=== PATIENT | female | born 1990 | race Caucasian/White ===

== ENCOUNTER 2017-09-25 10:21 | Inpatient (IN) | payer SELFPAY ==
[2017-09-25] VITALS (9 sets, daily range): BP systolic 107–132; BP diastolic 70–89
[~2017-09-25] VITALS: Ht 170.2 cm; Wt 63.2 kg
[2017-09-25] MEDS ORDERED: 1/2 NS IV SOLUTION 1,000 ML IV PRN (17:36)
[2017-09-25] MEDS ORDERED: THIAMINE INJECTION 100 MG, FOLIC ACID INJECTION 1 MG, MAGNESIUM SULFATE 2 GM, VITAMIN M... IV SCH ×5 (17:36)
[2017-09-25] MEDS ORDERED: LORazepam INJ 2 MG/ML (ATIVAN) VIAL IM/IV PRN (17:45)
[2017-09-25] MEDS ORDERED: fentaNYL INJECTION 100 MCG/2 ML AMP IVP PRN (17:45)
[2017-09-25] MEDS ORDERED: ONDANSETRON 4 MG (ZOFRAN) ORAL DISSOLVE TAB SL PRN (17:45)
[2017-09-25] MEDS ORDERED: SENNA W/DOCUSATE (SENOKOT S) TABLET PO PRN (17:45)
[2017-09-25] MEDS ORDERED: ANTACID SUSP 30 ML UDC (MYLANTA) PO PRN (17:45)
--- OUTSIDE RECORDS SUMMARY | 2017-09-25 17:53 | XMS REPORT | Continuity of Care Document ---
Author Author [facility] Address Unknown Phone Unavailable Allergies Medications Problems Procedures Results Encounters ACCT No. Visit Date/Time Discharge Status Pt. Type Provider Facility Loc./Unit Complaint [id number] 10/04/2014 15:36:44 10/04/2014 23: 59:59 [facility] Outpatient Alesia Berman [id number] 09/07/2014 09:27:02 09/07/2014 23: 59:59 [facility] Outpatient Alesia Berman
[2017-09-25 18:36] LABS: INR 0.9 (0.8-1.4); PROTHROMBIN TIME PATIENT 12.5 SEC (12.2-14.7)
[2017-09-25 18:46] LABS: ALANINE AMINOTRANSFERASE 18 U/L (0-55); ALBUMIN 4.3 GM/DL (3.2-4.5); ALKALINE PHOSPHATASE 49 U/L (40-136); BILIRUBIN,TOTAL 0.4 MG/DL (0.1-1.0); BUN/CREATININE RATIO 15; CALCIUM 8.9 MG/DL (8.5-10.1); CARBON DIOXIDE 25 MMOL/L (21-32); CHLORIDE 95 MMOL/L (98-107); CREATININE SERUM 0.81 MG/DL (0.60-1.30); GFR ESTIMATED > 60; GLUCOSE 91 MG/DL (70-105); POTASSIUM 3.7 MMOL/L (3.6-5.0); SODIUM 137 MMOL/L (135-145); TOTAL PROTEIN 7.4 GM/DL (6.4-8.2)
--- NOTE | 2017-09-25 18:47 | History & Physical-Hospitalist ---
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 I placed admission orders and with detox protocol and upon arrival she had a seizure which she's never had a seizure before. Her mother is at the bedside. She reports that she was in the ER in [place] when she went through alcohol withdrawal before but that was just given a taper dose of anxiolytics and discharged home on pills but never required admission or ICU admission such as this. She drinks approximately 12 beers a day but I suspect that is more considering how severe her withdrawal is currently. She is very concerned about losing her job [employer] and we will provide any support we can and eventually moved to an inpatient alcohol rehabilitation facility to complete care. 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[employer]) Alcohol Use: Regular Use Alcohol Beverage of Choice: Beer Recreational Drug Use: No Smoking Status: Former Smoker Type Used: Cigarettes Physical Abuse Screen: No Sexual Abuse: No Recent Foreign Travel: No Contact w/other who traveled: No Recent Hopitalizations: No Immunizations Up To Date Date of Influenza Vaccine: Jul 15, 2017 Seasonal Allergies Seasonal Allergies: No Surgeries Yes (L5-S1 fusion, breast reduction) Respiratory No Cardiovascular No Neurological No Genitourinary No Gastrointestinal No Musculoskeletal Yes (L5-S1 Fusion) Endocrine History of Endocrine Disorders: No HEENT History of HEENT Disorders: No Cancer No Psychosocial Behavioral Health Disorders: Anxiety, Depression Integumentary History of Skin or Integumenta: No Blood Transfusions History of Blood Disorders: No Review of Systems Constitutional: see HPI, chills, diaphoresis, dizziness, malaise, weight loss EENTM: no symptoms reported Respiratory: no symptoms reported Cardiovascular: palpitations Gastrointestinal: heartburn, loss of appetite, nausea, vomiting Genitourinary: decreased output Musculoskeletal: no symptoms reported Skin: no symptoms reported Psychiatric/Neurological: Anxiety, Depressed All Other Systems Reviewed Negative Unless Noted: Yes Physical Exam Physical Exam Vital Signs Vital Sign - Last 12Hours 09/25/17 18:20 O2 Delivery Room Air Capillary Refill : General Appearance: WD/WN, Moderate Distress (due to withdrawal) Eyes: Bilateral Eye Normal Inspection, Bilateral Eye PERRL HEENT: PERRL/EOMI, Normal ENT Inspection, Pharynx Normal Neck: Full Range of Motion, Normal Inspection, Non Tender, Supple, Carotid Bruit Respiratory: Chest Non Tender, Lungs Clear, Normal Breath Sounds, No Accessory Muscle Use, No Respiratory Distress Cardiovascular: No Edema, No Gallop, No JVD, No Murmur, Normal Peripheral Pulses, Tachycardia Gastrointestinal: Normal Bowel Sounds, No Organomegaly, No Pulsatile Mass, Non Tender, Soft Back: Normal Inspection, No CVA Tenderness, No Vertebral Tenderness Extremity: Normal Capillary Refill, Normal Inspection, Normal Range of Motion, Non Tender, No Calf Tenderness, No Pedal Edema Neurologic/Psychiatric: Alert, Oriented x3, No Motor/Sensory Deficits, Depressed Affect Skin: Normal Color, Warm/Dry Lymphatic: No Adenopathy Assessment/Plan Admission Diagnosis Assessment: Acute and severe ETOH withdrawal with seizure on admit History of ETOH-ism Lumbar spine surgery hx Former smoker Assessment and Plan Plan: Detox protocol Ativan for seizures and withdrawal Check labs and HCG Monitor closely SW consult Clinical Quality Measures DVT/VTE Risk/Contraindication: Risk Factor Score Per Nursin RFS Level Per Nursing on Admit: 3=High JO-ANN HENNING DO Sep 25, 2017 18:47
[2017-09-25 19:05] LABS: BILIRUBIN,URINE NEGATIVE (NEGATIVE); CLARITY,URINE CLEAR; COLOR,URINE YELLOW; GLUCOSE, URINE (UA) NEGATIVE (NEGATIVE); KETONES,URINE NEGATIVE (NEGATIVE); LEUKOCYTE ESTERASE ,URINE NEGATIVE (NEGATIVE); NITRITE,URINE NEGATIVE (NEGATIVE); PH,URINE 7 (5-9); PROTEIN,URINE NEGATIVE (NEGATIVE); UROBILINOGEN,URINE NORMAL (NORMAL)
[2017-09-25 19:19] LABS: AMPHETAMINE SCREEN, URINE NEGATIVE (NEGATIVE); BARBITURATE SCREEN URINE NEGATIVE (NEGATIVE); BENZODIAZEPINES SCREEN URINE NEGATIVE (NEGATIVE); CANNABINOID SCREEN, URINE NEGATIVE (NEGATIVE); COCAINE SCREEN URINE NEGATIVE (NEGATIVE); METHADONE STAT NEGATIVE (NEGATIVE); METHAMPHETAMINE SCREEN URINE S NEGATIVE (NEGATIVE); OPIATE SCREEN URINE NEGATIVE (NEGATIVE); OXYCODONE STAT NEGATIVE (NEGATIVE); PROPOXYPHENE STAT NEGATIVE (NEGATIVE); TRICYCLIC ANTIDEPRESSANTS SCRE NEGATIVE (NEGATIVE)
[2017-09-25 19:21] LABS: BACTERIA,URINE TRACE /HPF; WBC,URINE RARE /HPF
[2017-09-25] MEDS: THIAMINE INJECTION 100 MG, FOLIC ACID INJECTION 1 MG, MAGNESIUM SULFATE 2 GM, VITAMIN M... IV SCH ×5 (19:40)
[2017-09-25] MEDS: NS IV 1000 ML 1,000 ML IV SCH (19:43)
[2017-09-25] MEDS: LORazepam 1 MG (ATIVAN) TAB PO PRN (19:53)
[2017-09-25] MEDS ORDERED: MAGNESIUM OXIDE (MAG-OX)400 MG TAB PO SCH (21:00)
[2017-09-25] MEDS: ONDANSETRON 4 MG/2 ML (SDV) Z0FRAN IV PRN (21:12)
[2017-09-26] VITALS (24 sets, daily range): BP systolic 93–139; BP diastolic 62–89
[2017-09-26] MEDS: D5 1/2 NS 1000 ML IV SOLUTION 1,000 ML IV PRN (02:33)
[2017-09-26] MEDS: NS IV 1000 ML 1,000 ML IV SCH ×2 (04:45→15:04)
[2017-09-26 05:27] LABS: BASOPHILS % (AUTO) 1 % (0-10); EOSINOPHILS # (AUTO) 0.1 10^3/uL (0.0-0.3); EOSINOPHILS % (AUTO) 4 % (0-10); HEMATOCRIT 40 % (35-52); HEMOGLOBIN 13.9 G/DL (11.5-16.0); LYMPHOCYTES # (AUTO) 1.7 X 10^3 (1.0-4.0); LYMPHOCYTES % (AUTO) 49 % (12-44); MEAN CORPUSCULAR HEMOGLOBIN 31 PG (25-34); MEAN CORPUSCULAR HGB CONC 35 G/DL (32-36); MEAN CORPUSCULAR VOLUME 89 FL (80-99); MEAN PLATELET VOLUME 8.8 FL (7.4-10.4); MONOCYTES # (AUTO) 0.3 X 10^3 (0.0-1.0); MONOCYTES % (AUTO) 9 % (0-12); NEUTROPHILS # (AUTO) 1.3 X 10^3 (1.8-7.8); NEUTROPHILS % (AUTO) 38 % (42-75); PLATELET COUNT 200 10^3/uL (130-400); RED BLOOD COUNT 4.49 10^6/uL (4.35-5.85); RED CELL DISTRIBUTION WIDTH 13.1 % (10.0-14.5); WHITE BLOOD COUNT 3.5 10^3/uL (4.3-11.0)
[2017-09-26 05:52] LABS: BUN/CREATININE RATIO 13; CALCIUM 8.5 MG/DL (8.5-10.1); CARBON DIOXIDE 27 MMOL/L (21-32); CHLORIDE 102 MMOL/L (98-107); GFR ESTIMATED > 60; GLUCOSE 66 MG/DL (70-105); MAGNESIUM 2.6 MG/DL (1.8-2.4); PHOSPHORUS 3.7 MG/DL (2.3-4.7); POTASSIUM 3.9 MMOL/L (3.6-5.0); SODIUM 143 MMOL/L (135-145)
[2017-09-26 05:53] LABS: BILIRUBIN,DIRECT 0.3 MG/DL (0.0-0.3); BILIRUBIN,INDIRECT 0.5 MG/DL; BILIRUBIN,TOTAL 0.8 MG/DL (0.1-1.0); TOTAL PROTEIN 5.8 GM/DL (6.4-8.2)
--- NOTE | 2017-09-26 06:05 | Pulmonary Consultation ---
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 Her alcohol level was found to be 383 upon admission. Pt had a seizure upon arrival. No prior episodes of seizures. SHe has had and treated for prior alcohol withdrawal symptoms when she lived in . I am consulted for ICU management. Allergies and Home Medications Allergies Coded Allergies: bacitracin (Verified Allergy, Unknown, 09/25/17) neomycin (Verified Allergy, Unknown, 09/25/17) polymyxin B (Verified Allergy, Unknown, 09/25/17) Home Medications Ascorbate Calcium 500 Mg Tablet, 500 MG PO DAILY, (Reported) Multivits,Ca,Minerals/Iron/FA 1 Each Tablet, 1 TAB PO DAILY, (Reported) Past Vlabiqg-Lfdtdk-Ntukok Hx Patient Social History Alcohol Use: Regular Use Alcohol Beverage of Choice: Beer Recreational Drug Use: No Smoking Status: Former Smoker Type Used: Cigarettes Recent Foreign Travel: No Contact w/Someone Who Travel: No Recent Hopitalizations: No Immunizations Up To Date Date of Influenza Vaccine: Jul 15, 2017 Seasonal Allergies Seasonal Allergies: No Surgeries History of Surgeries: Yes (L5-S1 fusion, breast reduction) Respiratory History of Respiratory Disorde: No Cardiovascular History of Cardiac Disorders: No Neurological History of Neurological Disord: No Reproductive System : No Genitourinary History of Genitourinary Disor: No Gastrointestinal History of Gastrointestinal Di: No Musculoskeletal History of Musculoskeletal Dis: Yes (L5-S1 Fusion) Endocrine History of Endocrine Disorders: No HEENT History of HEENT Disorders: No Cancer History of Cancer: No Psychosocial Behavioral Health Disorders: Anxiety, Depression Integumentary History of Skin or Integumenta: No Blood Transfusions History of Blood Disorders: No Family Medical History Family Medial History: Hypercholesterolemia 19 FATHER Hypertension 19 FATHER Review of Systems Time Seen by Provider: 06:11 Exam Exam Vital Signs Date Time Temp Pulse Resp B/P (MAP) Pulse Ox O2 Delivery O2 Flow Rate FiO2 09/26/17 04:00 97 Nasal Cannula 1.00 09/26/17 03:00 78 18 103/70 (81) 99 Room Air 09/26/17 02:00 82 11 100/68 (79) 99 Room Air 09/26/17 01:00 85 14 101/66 (78) 98 Room Air 09/26/17 01:00 84 09/26/17 00:00 99 Nasal Cannula 1.00 09/26/17 00:00 96.9 81 13 105/77 (86) 99 Room Air 09/25/17 23:00 86 14 107/72 (84) 96 Room Air 09/25/17 22:00 88 14 107/72 (84) 98 Room Air 09/25/17 21:00 96 14 114/77 (89) 97 Room Air 09/25/17 20:00 97.9 105 16 114/78 (90) 94 Room Air 09/25/17 20:00 96 Nasal Cannula 1.00 09/25/17 19:00 116 09/25/17 19:00 112 13 107/70 (82) 96 Room Air 09/25/17 18:45 138 12 132/89 (103) 96 Room Air 09/25/17 18:30 112 22 119/87 (98) 96 Room Air 09/25/17 18:20 Room Air 09/25/17 18:15 121 19 121/74 (90) 97 Room Air 09/25/17 18:00 125 14 120/86 (97) 99 Room Air 09/25/17 18:00 98.9 I & O 09/26/17 07:00 Intake Total 1460 ml Output Total 1800 ml Balance -340 ml General Appearance: No Apparent Distress, WD/WN HEENT: PERRL/EOMI, Normal ENT Inspection, Pharynx Normal Neck: Full Range of Motion, Normal Inspection, Non Tender, Supple, Carotid Bruit Respiratory: Chest Non Tender, Lungs Clear, Normal Breath Sounds, No Accessory Muscle Use, No Respiratory Distress Cardiovascular: No Edema, No Gallop, No JVD, No Murmur, Normal Peripheral Pulses, Tachycardia Extremity: Normal Capillary Refill, Normal Inspection, Normal Range of Motion, Non Tender, No Calf Tenderness, No Pedal Edema Neurologic/Psychiatric: Alert, Oriented x3, No Motor/Sensory Deficits, Depressed Affect Skin: Normal Color, Warm/Dry Lymphatic: No Adenopathy Results Lab Laboratory Tests 09/25/17 18:20 09/26/17 05:15 Assessment/Plan Assessment/Plan -Alcohol withdrawal -Alcohol withdrawal protocol Seizures -Seizure precautions -treat for alcohol withdrawal -Dehydration -IVF Alcohol dependance -Education Hypermagnesemia -Hold magnesium 255 Clinical Quality Measures DVT/VTE Risk/Contraindication: Risk Factor Score Per Nursin RFS Level Per Nursing on Admit: 3=High ALEXANDREA KENDALL DO Sep 26, 2017 06:05
[2017-09-26] MEDS: MULTIVIT W/MINERALS TAB (THERAGRAN M) PO SCH (07:43)
[2017-09-26] MEDS: THIAMINE 100 MG (VITAMIN B-1) TAB PO SCH (07:43)
[2017-09-26] MEDS: FOLIC ACID 1 MG TAB PO SCH (08:20)
[2017-09-26] MEDS: LORazepam INJ 2 MG/ML (ATIVAN) VIAL IV PRN ×2 (08:21→12:56)
[2017-09-26] MEDS: THIAMINE INJECTION 100 MG, FOLIC ACID INJECTION 1 MG, MAGNESIUM SULFATE 2 GM, VITAMIN M... IV SCH ×5 (08:38)
--- NOTE | 2017-09-26 08:44 | Diagnostic Imaging Report ---
Portable erect AP chest at 4:42 AM. INDICATION: Shortness of breath. There are no prior studies available for comparison. The heart size is within normal limits. The lungs are clear. There is no evidence for failure, pneumonia, or for a pleural effusion. Mediastinum is not widened. The osseous structures are intact. IMPRESSION: There is no evidence for an acute cardiopulmonary abnormality. Dictated by: Dictated on workstation # [id number]
[2017-09-26] MEDS ORDERED: MULT-884 PO (09:44)
[2017-09-26] MEDS ORDERED: ASCO-262 PO (09:44)
--- NOTE | 2017-09-26 10:55 | Progress Note-Hospitalist ---
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 I placed admission orders and with detox protocol and upon arrival she had a seizure which she's never had a seizure before. Her mother is at the bedside. She reports that she was in the ER in [place] when she went through alcohol withdrawal before but that was just given a taper dose of anxiolytics and discharged home on pills but never required admission or ICU admission such as this. She drinks approximately 12 beers a day but I suspect that is more considering how severe her withdrawal is currently. She is very concerned about losing her job [facility] [employer] and we will provide any support we can and eventually moved to an inpatient alcohol rehabilitation facility to complete care. Progress Notes/Assess & Plan Date Seen 09/26/17 Time Seen by Provider: 11:00 Admission Dx/Process Assessment: Acute and severe ETOH withdrawal with seizure on admit History of ETOH-ism Lumbar spine surgery hx Former smoker Diagonsis/Assessment & Plan Chart Review: No fever Vitals stable WBC 3.5 Hgb 13.9 CMP normal UA negative UCG negative Blood alcohol 383 at 1820 yesterday, now 170 Pharmacy Review: Pt only received one dose IV Ativan at 0820 Pt was also given 1 mg at 1953 then another at midnight seamless tube drawer: Pt has not been eating RN has known pt since she was a child; she states the pt went to school with her kids Pt seems to have struggled with eating and not eating for a long time. Eating disorder was suggested. Ativan was given this am, IV Patient Interview: Pt was asked if she has met with social work and this was discussed. Pain was discussed Physical exam stable. Lungs sound perfect. Detox and seizure was discussed. Pt was informed that she will be staying in ICU for now since her alcohol level is still quite high. DC was discussed for Saturday or Saturday AFVSS, pleasant, improved RRR, CTAB No edema Laboratory Tests 09/25/17 18:20 09/26/17 05:15 Assessment: ETOH withdrawal with acute seizure on arrival even while BAL was 383 not improved at 170 but more withdrawal expected Poor nutrition Plan: Detox protocol Ativan for seizures and withdrawal Monitor closely SW consult In-Pt ETOH rehab Scribed by Suyapa Camp under direct supervision of Dr. Jo-Ann Henning. JO-ANN HENNING DO Sep 26, 2017 10:55
[2017-09-26] MEDS: LORazepam 1 MG (ATIVAN) TAB PO PRN ×2 (16:45)
[2017-09-26] MEDS ORDERED: SCOPOLAMINE 1.5 MG (TRANSDERM-SCOP) PATCH TD ONE (16:45)
[2017-09-27] VITALS (20 sets, daily range): BP systolic 92–130; BP diastolic 58–99
[2017-09-27] MEDS: NS IV 1000 ML 1,000 ML IV SCH (00:45)
[2017-09-27] MEDS: D5 1/2 NS 1000 ML IV SOLUTION 1,000 ML IV PRN (02:47)
[2017-09-27] MEDS: THIAMINE 100 MG (VITAMIN B-1) TAB PO SCH (06:05)
[2017-09-27] MEDS: MULTIVIT W/MINERALS TAB (THERAGRAN M) PO SCH (06:05)
--- NOTE | 2017-09-27 06:16 | Pulmonary Progress Note ---
Subjective Time Seen by Provider: 06:18 Subjective/Events-last exam No complications noted. Exam Exam Vital Signs Date Time Temp Pulse Resp B/P (MAP) Pulse Ox O2 Delivery O2 Flow Rate FiO2 09/27/17 04:00 97.7 09/27/17 04:00 98 Room Air 09/27/17 01:00 47 09/27/17 00:00 61 14 106/69 (81) 97 Room Air 09/27/17 00:00 98 Room Air 09/27/17 00:00 97.3 09/26/17 23:00 54 13 107/74 (85) 96 Room Air 09/26/17 22:00 70 13 100/62 (75) 97 Room Air 09/26/17 21:00 81 13 102/64 (77) 97 Room Air 09/26/17 20:00 88 17 113/72 (86) 96 Room Air 09/26/17 20:00 95 Room Air 09/26/17 20:00 98.3 09/26/17 19:00 91 09/26/17 19:00 87 16 115/89 (98) 97 Room Air 09/26/17 18:00 89 12 118/79 (92) 99 Room Air 09/26/17 17:00 87 8 113/79 (90) 99 Room Air 09/26/17 16:00 99 Nasal Cannula 09/26/17 16:00 98.6 96 25 119/79 (92) 99 Room Air 09/26/17 15:00 89 6 139/71 (93) 97 Room Air 09/26/17 14:00 90 13 116/89 (98) 97 Room Air 09/26/17 13:00 93 09/26/17 13:00 93 11 134/85 (101) 99 Room Air 09/26/17 12:00 99.1 91 8 123/76 (92) 98 Room Air 09/26/17 12:00 99 Nasal Cannula 09/26/17 11:00 82 12 127/75 (92) 98 Room Air 09/26/17 10:00 90 11 113/72 (86) 98 Room Air 09/26/17 09:00 84 11 98/66 (77) 98 Room Air 09/26/17 08:00 99 Nasal Cannula 09/26/17 08:00 97.8 09/26/17 08:00 88 9 97/65 (76) 100 Room Air 09/26/17 07:00 76 09/26/17 07:00 91 15 107/73 (84) 97 Room Air 09/26/17 06:57 98 Nasal Cannula 1.00 I & O 09/27/17 07:00 Intake Total 2850 ml Output Total 2630 ml Balance 220 ml General Appearance: No Apparent Distress, WD/WN HEENT: PERRL/EOMI, Normal ENT Inspection, Pharynx Normal Neck: Full Range of Motion, Normal Inspection, Non Tender, Supple, Carotid Bruit Respiratory: Chest Non Tender, Lungs Clear, Normal Breath Sounds, No Accessory Muscle Use, No Respiratory Distress Cardiovascular: No Edema, No Gallop, No JVD, No Murmur, Normal Peripheral Pulses, Tachycardia Extremity: Normal Capillary Refill, Normal Inspection, Normal Range of Motion, Non Tender, No Calf Tenderness, No Pedal Edema Neurologic/Psychiatric: Alert, Oriented x3, No Motor/Sensory Deficits, Depressed Affect Skin: Normal Color, Warm/Dry Lymphatic: No Adenopathy Results Lab Laboratory Tests 09/25/17 18:20 09/26/17 05:15 Assessment/Plan Assessment/Plan -Alcohol withdrawal -- she is having cold sweats. SHe is not to the peak of her alcohol withdrawal yet. -Alcohol withdrawal protocol -Pt states she does not want to drink alcohol anymore. Seizures -Seizure precautions -treat for alcohol withdrawal -Dehydration -IVF Alcohol dependance -Education Labs pending 233 Clinical Quality Measures DVT/VTE Risk/Contraindication: Risk Factor Score Per Nursin RFS Level Per Nursing on Admit: 3=High ALEXANDREA KENDALL DO Sep 27, 2017 06:16
[2017-09-27 06:34] LABS: BASOPHILS % (AUTO) 1 % (0-10); EOSINOPHILS # (AUTO) 0.2 10^3/uL (0.0-0.3); EOSINOPHILS % (AUTO) 5 % (0-10); HEMATOCRIT 37 % (35-52); HEMOGLOBIN 12.7 G/DL (11.5-16.0); LYMPHOCYTES # (AUTO) 1.4 X 10^3 (1.0-4.0); LYMPHOCYTES % (AUTO) 45 % (12-44); MEAN CORPUSCULAR HEMOGLOBIN 32 PG (25-34); MEAN CORPUSCULAR HGB CONC 35 G/DL (32-36); MEAN CORPUSCULAR VOLUME 91 FL (80-99); MONOCYTES # (AUTO) 0.4 X 10^3 (0.0-1.0); MONOCYTES % (AUTO) 13 % (0-12); NEUTROPHILS # (AUTO) 1.1 X 10^3 (1.8-7.8); NEUTROPHILS % (AUTO) 36 % (42-75); PLATELET COUNT 150 10^3/uL (130-400); RED BLOOD COUNT 4.02 10^6/uL (4.35-5.85); RED CELL DISTRIBUTION WIDTH 12.9 % (10.0-14.5); WHITE BLOOD COUNT 3.1 10^3/uL (4.3-11.0)
[2017-09-27 06:59] LABS: BUN/CREATININE RATIO 6; CALCIUM 8.8 MG/DL (8.5-10.1); CARBON DIOXIDE 23 MMOL/L (21-32); CHLORIDE 110 MMOL/L (98-107); CREATININE SERUM 0.77 MG/DL (0.60-1.30); GFR ESTIMATED > 60; GLUCOSE 100 MG/DL (70-105); MAGNESIUM 1.8 MG/DL (1.8-2.4); PHOSPHORUS 3.2 MG/DL (2.3-4.7); POTASSIUM 4.1 MMOL/L (3.6-5.0); SODIUM 141 MMOL/L (135-145)
[2017-09-27] MEDS: FOLIC ACID 1 MG TAB PO SCH (09:02)
[2017-09-27] MEDS: THIAMINE INJECTION 100 MG, FOLIC ACID INJECTION 1 MG, MAGNESIUM SULFATE 2 GM, VITAMIN M... IV SCH ×5 (09:23)
[2017-09-27] MEDS ORDERED: NORE1TAB61 PO (11:20)
[2017-09-27] MEDS ORDERED: TRAZ-28 PO (11:20)
[2017-09-27] MEDS ORDERED: AMPH20TA2 PO (11:20)
[2017-09-27] MEDS ORDERED: VENL75CA93 PO (11:20)
--- NOTE | 2017-09-27 11:37 | Progress Note-Hospitalist ---
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 I placed admission orders and with detox protocol and upon arrival she had a seizure which she's never had a seizure before. Her mother is at the bedside. She reports that she was in the ER in [place] when she went through alcohol withdrawal before but that was just given a taper dose of anxiolytics and discharged home on pills but never required admission or ICU admission such as this. She drinks approximately 12 beers a day but I suspect that is more considering how severe her withdrawal is currently. She is very concerned about losing her job [facility] and we will provide any support we can and eventually moved to an inpatient alcohol rehabilitation facility to complete care. 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 I informed the RN that I will be around for the mother to talk to Pt has stated that her friends have told her that this was not the first time she has gone through withdrawal. SW Review: Pt is on a few medications, but does not have insurance. This was discussed with the pt's mother and we are hoping that the family could help pay for her medications. Patient Interview: Pt was informed that she will move to 4 th floor Pt was informed I am not ready to DC her just yet and the pt was informed that we have just gotten everything out of system and she is still at risk for seizure. RN stated that the pt has not received Ativan today Physical exam stable. Lungs sound perfect Pt denies experiencing pain Pt confirms having BMs Pt confirms mother is on her way Pt confirms going through withdrawal before. Pt states she is feeling well enough now. Pt was again informed that she is still at risk. Pt was informed that another seizure at home could cause her to aspirate may inevitably cause . Mother arrived during interview; plan was discussed. AFVSS, pleasant, improved RRR, CTAB No edema Assessment: ETOH withdrawal with acute seizure on arrival even while BAL was 383 not improved at 170 but more withdrawal expected so maintain hospitalized status until tomorrow Poor nutrition Non-compliance with meds Plan: Detox protocol Atbanner for seizures and withdrawal Monitor closely SW consult In-Pt ETOH rehab Transfer to 4th floor DC fluids Ambulate Home meds Scribed by Suyapa Camp under direct supervision of Dr. Jo-Ann Henning. JO-ANN HENNING DO Sep 27, 2017 11:37
[2017-09-27] MEDS: ASCORBIC ACID (VIT C) 500 MG TABLET PO SCH (12:11)
[2017-09-27] MEDS: ONDANSETRON 4 MG/2 ML (SDV) Z0FRAN IV PRN (18:05)
[2017-09-27] MEDS: LORazepam 1 MG (ATIVAN) TAB PO PRN (18:05)
[2017-09-27] MEDS ORDERED: traZODone 50 MG (DESYREL) TAB PO SCH (21:00)
[2017-09-27] MEDS ORDERED: DEXTROAMPHETAMINE PO SCH (21:00)
[2017-09-27] MEDS ORDERED: [UNRECOGNIZED DRUG - OTHER] PO SCH (21:00)
[2017-09-27] MEDS ORDERED: AMPHETAMINE PO SCH (21:00)
[2017-09-28] VITALS: BP 108/63
[2017-09-28 04:55] VITALS: BP 109/63
[2017-09-28] MEDS: ASCORBIC ACID (VIT C) 500 MG TABLET PO SCH (06:02)
[2017-09-28] MEDS: THIAMINE 100 MG (VITAMIN B-1) TAB PO SCH (06:02)
[2017-09-28] MEDS ORDERED: MULTIVIT W/MINERALS TAB (THERAGRAN M) PO SCH (07:00)
[2017-09-28 08:00] VITALS: BP 117/79
[2017-09-28] MEDS: FOLIC ACID 1 MG TAB PO SCH (08:44)
[2017-09-28] MEDS: LORazepam 1 MG (ATIVAN) TAB PO PRN (08:47)
[2017-09-28] MEDS ORDERED: NORETHINDRONE AC ETH ESTRADIOL PO SCH (09:00)
[2017-09-28] MEDS ORDERED: VENlafaxine XR 75 MG (EFFEXOR XR) CAP PO SCH (09:00)
[2017-09-28] MEDS ORDERED: NORE1TAB61 PO (12:03)
[2017-09-28] MEDS ORDERED: TRAZ-28 PO (12:03)
[2017-09-28] MEDS ORDERED: VENL75CA93 PO (12:03)
--- NOTE | 2017-09-28 12:11 | Discharge Summary-Hospitalist ---
Diagnosis/Chief Complaint Date of Admission Sep 25, 2017 at 5:45 pm Date of Discharge September 28, 2017 Discharge Date: Sep 28, 2017 Discharge Time: 13:00 Admission Diagnosis Assessment: Acute and severe ETOH withdrawal with seizure on admit History of ETOH-ism Lumbar spine surgery hx Former smoker Discharge Diagnosis acute alcohol intoxication Chronic alcohol abuse Depression and anxiety Discharge Summary Procedures none Consultations Dr. Noyola Discharge Physical Examination Allergies: Coded Allergies: bacitracin (Verified Allergy, Unknown, 09/25/17) neomycin (Verified Allergy, Unknown, 09/25/17) polymyxin B (Verified Allergy, Unknown, 09/25/17) Vitals & I&Os Vital Signs Date Time Temp Pulse Resp B/P (MAP) Pulse Ox O2 Delivery O2 Flow Rate FiO2 09/28/17 07:01 106 09/28/17 04:55 97.4 18 109/63 (78) 100 Room Air 09/26/17 06:57 1.00 General Appearance: Alert, Oriented X3, Cooperative, No Acute Distress HEENT: Atraumatic, PERRLA Respiratory: Clear to Auscultation Cardiovascular: Regular Rate, Normal S1, Normal S2, No Murmurs Abdominal: Normal Bowel Sounds, Soft Extremities: No Clubbing, No Cyanosis, No Edema Neuro: Normal Gait, Normal Speech, Strength at 5/5 X4 Ext Psych/Mental Status: Mental Status NL, Mood NL Hospital Course 27-year-old white female was admitted with acute alcohol intoxication and wishes for admission for detoxification. At the time of admission the patient' s blood alcohol level was 383 and she had witnessed tremors. First this was felt to be seizures but upon further discussion with the patient and her mother' s there was never any loss of consciousness but very strong tremors. Because the patient's blood alcohol level was quite elevated at this time it was not felt to be a withdrawal seizure. The patient then was placed on a detox protocol and did not have any further complications. At the time of discharge she does not want to go into inpatient rehabilitation. She prefers to pursue outpatient AA treatment. She wishes to get back on her Effexor and trazodone which helped her in the past. In addition she requests going back on Adderall but because of the addictive potential I was not willing to prescribe that. Her mother is present throughout our discussions and is supportive. the patient wishes to follow-up with Dr. Henning at the time of discharge. She is cleared to return to work without restriction. Discharge Home Medications: Active Scripts Active Microgestin 21 1-20 Tablet (Norethindrone AC-Eth Estradiol) 1 Each Tablet 1 Each PO DAILY 30 Days Venlafaxine HCl ER (Venlafaxine HCl) 75 Mg Cap.er.24h 75 Mg PO DAILY 30 Days Trazodone HCl 50 Mg Tablet 50 Mg PO HS 30 Days Reported Adderall 20 mg Tablet (Dextroamphetamine/Amphetamine) 20 Mg Tablet 20 Mg PO BID Women's Daily Caplet (Multivits,Ca,Minerals/Iron/FA) 1 Each Tablet 1 Tab PO DAILY Vitamin C (Ascorbate Calcium) 500 Mg Tablet 500 Mg PO DAILY Condition at discharge stable Instructions to patient/family Please see electronic discharge instructions given to patient. Clinical Quality Measures DVT/VTE Risk/Contraindication: Risk Factor Score Per Nursin RFS Level Per Nursing on Admit: 3=High Copy Copies To 1: CAIN HENNING KATHLEEN M MD Sep 28, 2017 12:11 pm
[2017-09-28 12:15] VITALS: BP 117/79
[2017-09-29] MEDS ORDERED: SCOPOLAMINE PATCH REMOVAL TP SCH (17:00)
--- OUTSIDE RECORDS SUMMARY | 2017-09-30 10:27 | XMS REPORT | Continuity of Care Document ---
Author Author [facility] Address Unknown Phone Unavailable Allergies There is no data. Medications There is no data. Problems There is no data. Procedures There is no data. Results There is no data. Encounters ACCT No. Visit Date/Time Discharge Status Pt. Type Provider Facility Loc./Unit Complaint [id number] 10/04/2014 15:36:44 10/04/2014 23:59:59 [facility] Outpatient Alesia Berman [id number] 09/07/2014 09:27:02 09/07/2014 23:59:59 [facility] Outpatient Alesia Berman
== END 2017-09-28 12:30 | disposition home or self-care (01) | DRG 897 ==
LOC: EDSTATUS 10:21 → OBSVTOIN 17:45 → UNDOADMOB 17:45 → ICU 17:45 → INTOOBSV 17:45 → ICU 17:45 → 4TH 09-27 20:15 → UNDODISIN 09-28 12:30
PROVIDERS: ADMIT Internal Medicine; ATTEND Internal Medicine
DX: F10.239 Alcohol dependence with withdrawal, unspecified (principal); G40.909 Epilepsy, unspecified, not intractable, without status epilepticus; E86.0 Dehydration; E83.41 Hypermagnesemia; Z98.1 Arthrodesis status; Z87.891 Personal history of nicotine dependence; Z91.14 Patient's other noncompliance with medication regimen; Y90.8 Blood alcohol level of 240 mg/100 ml or more
CPT/HCPCS: 36415; 71010; 80048; 80053; 80076; 80306; 80320; 81000; 82962; 83735; 84100; 84703; 85025; 85610; 85730; 86703